=== PATIENT | male | born 1980 | race Caucasian/White ===

== ENCOUNTER 2016-03-11 12:58 | Emergency (ER) | payer OTHER ==
[2016-03-11 13:10] VITALS: BP 135/90; PULSE 82; TEMP 98.5; BMI 27.9
[2016-03-11] MEDS ORDERED: DIPHTHERIA AND TETANUS (ADULT) 0.5 ML SYR IM ONE (13:10)
--- NOTE | 2016-03-11 13:13 | EDPRACDOC ---
- General Information Chief Complaint: Wound Information Source: Patient Mode of Arrival:: Car Home Medications: Home Medications No Home Medications 09/22/14 Allergies/Adverse Reactions: Allergies Allergy/AdvReac Type Severity Reaction Status Date / Time No Known Allergies Allergy Verified 03/11/16 13:20 - History of Present Illness Onset: CAR RIDER HPI: PT PRESENTS WITH LACERATION TO LEFT PALM AFTER HE CUT IT WITH A UTILITY KNIFE. PT HAS FULL ROM, BRISK CAP REFILL, NEURO-VASCULAR INTACT, BLEEDING CONTROLLED. - Location LEFT PALM Mechanism: Reports: Cut, Knife - Tetanus Status Last Tetanus: No - Pain Pain Severity: Mild Bleeding: Reports: Controlled Associated Signs & Symptoms: Reports: None ED Past Medical History - History Reviewed Yes Nurses notes reviewed and agree except as marked - Social Medical History Smoking Status: Never smoker EDM Review of Systems - Review of Systems ROS Negative Except as Marked: Yes All systems reviewed and were negative except as marked - Physical Exam Constitutional: Alert Oriented to: Time, Person, Place Last recorded Vital Signs: Last Vital Signs Temp 98.5 F 03/11/16 13:09 Pulse 82 03/11/16 13:09 Resp 18 03/11/16 13:09 BP 135/90 03/11/16 13:09 Pulse Ox 97 03/11/16 13:09 Oxygen Pulse Oxygen Saturation 97 O2 Device Oxygen Flow Rate Fraction of Inspired Oxygen ( FIO2) - HEENT Head: Normal ( normocephalic) Eye Exam: Normal (PERRL, EOMI, Sclera white) Oropharynx: Normal (Pharynx:Moist without exudate,Gums-no swelling) Nose: No Symptoms Reported (septum midline) Neck: Normal (FROM, trachea at midline) - Respiratory/Cardiovascular Respiratory: Normal - CTA (BBS clear to auscultation without adventitious sounds ) Cardiovascular: Normal (RRR without murmur, gallop or rub) - GI Auscultation: Normal (NABS) Palpation: Normal (Soft,No rebound or guarding, non distended) Tenderness: Non tender Abel's Sign: Negative Rectal Exam: Deferred - Musculoskeletal Back: Normal (Non-Tender) Extremities: Normal (Normal tone, Pulses 2+ No cyanosis or edema, FROM) - Integumentary Skin: Normal, Warm, Dry Lymphatics: Normal (no adenopathy) - Neurologic Memory Impaired: Normal Motor Function: Normal (Normal tone, Pulses 2+ No cyanosis or edema, FROM) Cranial Nerve: Normal (CN II-X11 intact sensation, strength 5/5) Cerebellar: Normal Mood Description: Normal Perception: Normal ED Procedures - Suture/Laceration LEFT PALM Wound Length (cm): 2 Wound's Depth, Shape: superficial Wound Explored: clean Irrigated w/ Saline (ccs): 20 Betadine Prep?: Yes Anesthesia: 1% Lidocaine, Lidocaine w/ Epi Volume Anesthetic (ccs): 8 Wound Margins: Flaps aligned Wound Repaired With: Sutures Suture Size/Type: 4:0, prolene Number of Sutures: 7 Layer Closure?: No Sterile Dressing Applied?: No Splint Applied?: No Sling Applied?: No - Differential Diagnosis Laceration Decision Time to Discharge: 13:30 - Departure Disposition: Home Condition: Stable Final Diagnosis: Laceration Instructions: Care For Your Stitches (ED), Laceration (ED) Education/Counseling Given To: Patient Education/Counseling Given Regarding: Diagnosis, Treatment, Prognosis, Follow Up Referrals: Yasmany Cr MD [Staff Physician] - One Week Additional Instructions: KEEP AREA CLEAN AND DRY. CHANGE THE DRESSING TWICE A DAY. CLEAN WITH DIAL SOAP AND WARM WATER. NO NEED TO APPLY NEOSPORIN AFTER TODAY. PLEASE RETURN TO THE ED IN 7-10 DAY FOR SUTURE REMOVAL. TAKE ALL THE ANTIBIOTICS PRESCRIBED. FOLLOW UP WITH PRIMARY CARE PROVIDER NEXT WEEK. RETURN TO THE ED SOONER FOR SIGNS OF INFECTION SUCH FOUL SMELLING DRAINAGE, REDNESS, EXCESSIVE SWELLING, OR EXCESSIVE PAIN. MAY TAKE TYLENOL OR MOTRIN EVERY 4 HOURS ALTERNATING FOR PAIN. MAY APPLY ICE TO THE AREA FOR PAIN RELIEF.
[2016-03-11] MEDS: IBUPROFEN 800 MG TAB PO ONE ×2 (13:17→13:21)
== END 2016-03-11 13:35 | disposition home or self-care (01) ==
LOC: EDMC 12:58
DX: S61.412A Laceration without foreign body of left hand, initial encounter (principal); W26.0XXA Contact with knife, initial encounter; Z23 Encounter for immunization
CPT/HCPCS: 12001; 90471; 90714; 99283; J3490